=== PATIENT | male | born 1990 | race Caucasian/White ===

== ENCOUNTER 2018-10-24 23:06 | Outpatient (CLI) | payer OTHER | END 2018-10-24 23:07 | disposition critical access hospital (66) | LOC: EMS 23:06 | PROVIDERS: ATTEND Surgery | DX: R06.00 Dyspnea, unspecified (principal) | CPT/HCPCS: A0425; A0429 ==

== ENCOUNTER 2018-10-24 23:26 | Emergency (ER) | payer OTHER ==
[2018-10-25] MEDS ORDERED: CHERRY SYRUP 10 ML UDC PO ONE (00:09)
[2018-10-25] MEDS ORDERED: AMOX/CLAV 875 MG/125 MG TABLET PO STA (00:09)
[2018-10-25] MEDS ORDERED: DEXAMETHASONE 10 MG/ML VIAL PO STA (00:09)
[2018-10-25] MEDS ORDERED: IPRATROPIUM/ALBUTEROL 3 ML NEB INH STA (00:09)
--- NOTE | 2018-10-25 00:10 | ED Physician Documentation ---
PD HPI DYSPNEA - Stated complaint Stated Complaint: SOA - Chief complaint Chief Complaint: Resp - History obtained from History obtained from: Patient, Family - History of Present Illness Timing - onset: Yesterday Timing - onset during: Rest Timing - duration: Days (2) Timing - details: Gradual onset, Still present Inciting event(s): URI, Exposure (ie smoke) Improved by: O2, Inhaler/neb Worsened by: Exertion, Coughing Associated symptoms: Cough, Wheezing, Chest pain / discomfort Similar symptoms before: Has not had sx before Recently seen: Not recently seen - Additional information Additional information: 28-year-old male with no prior history of asthma has developed cough and congestion and yesterday he was cleaning his carpets in his home and following that he had some increasing shortness of breath. Today his shortness of breath worsened and he eventually called the ambulance was given a treatment in route with some improvement and presents to the emergency department now with some hypoxia and wheezing. Review of Systems Constitutional: denies: Fever Eyes: denies: Decreased vision Ears: denies: Ear pain Nose: reports: Rhinorrhea / runny nose, Congestion Throat: reports: Sore throat Cardiac: denies: Chest pain / pressure, Palpitations, Pedal edema, Calf pain Respiratory: reports: Dyspnea, Cough, Wheezing GI: denies: Abdominal Pain, Nausea, Vomiting : denies: Dysuria, Frequency PD PAST MEDICAL HISTORY - Past Medical History Past Medical History: No Cardiovascular: None Respiratory: None Neuro: None Endocrine/Autoimmune: None GI: None : None HEENT: None Psych: Depression, Anxiety Musculoskeletal: None Derm: None - Past Surgical History Past Surgical History: Yes Ortho: Other - Present Medications Home Medications: Ambulatory Orders Medication Instructions Recorded Confirmed Cetirizine [ZyrTEC] 10 mg PO DAILY 10/24/18 10/24/18 Fluticasone [Flonase] 2 sprays DAILY 10/24/18 10/24/18 Sertraline [Zoloft] 50 mg PO DAILY 10/24/18 10/24/18 Albuterol Sulf [Ventolin Hfa 1 - 2 puffs INH Q4HR PRN #1 inhaler 10/25/18 Inhaler] Amox/Clav 875/125 [Augmentin] 1 each PO Q12H #20 tablet 10/25/18 predniSONE [Deltasone] 10 mg PO ONCE #26 tablet 10/25/18 - Allergies Allergies/Adverse Reactions: Allergies Allergy/AdvReac Type Severity Reaction Status Date / Time iodine Allergy Itching Verified 10/24/18 23:35 shellfish derived Allergy Rash Verified 10/24/18 23:35 powdered gloves Allergy Hives Uncoded 10/24/18 23:35 - Social History Does the pt smoke?: No Smoking Status: Former smoker Does the pt drink ETOH?: No Does the pt have substance abuse?: No - Immunizations Immunizations are current?: Yes - POLST Patient has POLST: No PD ED PE NORMAL - Vitals Vital signs reviewed: Yes (hypertensive ) - General General: Alert and oriented X 3, Well developed/nourished, Other (tachypneic at rest with shallow breathing ) - HEENT HEENT: Atraumatic, PERRL, EOMI, Pharynx benign, Other (The left TM is inflamed in the attic and has disorted landmarks. The right is clear ) - Neck Neck: Supple, no meningeal sign, No bony TTP - Cardiac Cardiac: RRR, No murmur - Respiratory Respiratory: No respiratory distress, Other (diminished breath sounds bilat) - Abdomen Abdomen: Soft, Non tender - Back Back: No CVA TTP, No spinal TTP - Derm Derm: Normal color, Warm and dry, No rash - Extremities Extremities: No deformity, No tenderness to palpate, Normal ROM s pain, No neri ma, No calf tenderness / cord - Neuro Neuro: Alert and oriented X 3, extension edger 2-12 intact, No motor deficit, No sensory deficit, Normal speech Eye Opening: Spontaneous Motor: Obeys Commands Verbal: Oriented GCS Score: 15 - Psych Psych: Normal mood, Normal affect Results - Vitals Vitals: Vital Signs - 24 hr 10/24/18 10/25/18 10/25/18 23:29 00:22 01:13 Temperature 36.7 C Heart Rate 81 73 76 Respiratory 18 18 18 Rate Blood Pressure 135/83 H O2 Saturation 92 10/25/18 01:32 Temperature Heart Rate 94 Respiratory 18 Rate Blood Pressure 125/64 O2 Saturation 98 Oxygen O2 Source Room air - Rads (name of study) chest 2 view Radiology: Prelim report reviewed, EMP read indepedently, See rad report (Impression: Mild right suprahilar and left lung base opacity suspected because of, possibly pneumonia in the proper clinical setting.) PD MEDICAL DECISION MAKING - ED course Complexity details: reviewed old records, reviewed results, re-evaluated patient, considered differential, d/w patient, d/w family ED course: 28-year-old male with an acute reactive airway disease that appears to been set off by some carpet cleaning also has URI symptoms and on examination has otitis. He has some questionable infiltrate to his chest as well and here in the emergency department he is administered Augmentin as well as a DuoNeb treatment and dexamethasone. He has improvement in his breathing he is administered a second albuterol treatment and at the conclusion of treatment he is no longer hypoxic and is moving air fairly well. Departure - Departure Disposition: Home, Self Care Clinical Impression: Otitis media Qualifiers: Otitis media type: suppurative Chronicity: acute Laterality: left Recurrence: non-recurrent Spontaneous tympanic membrane rupture: without spontaneous rupture Qualified Code(s): H66.002 - Acute suppurative otitis media without spontaneous rupture of ear drum, left ear Reactive airway disease with acute exacerbation Qualifiers: Asthma severity: mild Asthma persistence: intermittent Qualified Code(s): J45.21 - Mild intermittent asthma with (acute) exacerbation Condition: Stable Instructions: ED Reactive Airway Disease, ED Bronchitis Asthmatic, ED Otitis Media Acute Adult Follow-Up: JOSE MARIA MARTIN MD [Primary Care Provider] - Prescriptions: Albuterol Sulf [Ventolin Hfa Inhaler] 1 - 2 puffs INH Q4HR PRN #1 inhaler PRN Reason: Shortness Of Air/Wheezing Amox/Clav 875/125 [Augmentin] 1 each PO Q12H #20 tablet predniSONE [Deltasone] 10 mg PO ONCE #26 tablet Discharge Date/Time: 10/25/18 01:50
[2018-10-25] MEDS ORDERED: ALBUTEROL NEB 2.5 MG/3 ML INH STA (00:50)
--- NOTE | 2018-10-25 01:03 | XRAY Report ---
Reason: cough soa Procedure Date: 10/25/2018 Accession Number: [id number] / [id number] Procedure: XR - Chest 2 View X-Ray CPT Code: 91667 FULL RESULT: EXAM: CHEST RADIOGRAPHY EXAM DATE: 10/25/2018 12:46 AM. CLINICAL HISTORY: Cough , short of breath. COMPARISON: None. TECHNIQUE: 2 views. FINDINGS: Lungs/Pleura: Minimal patchy right suprahilar opacity suspected. Mild lingular airspace opacity. No gross pneumothorax or effusion. Mediastinum: Heart and mediastinal contours are unremarkable. Other: None. IMPRESSION: Mild right suprahilar and left lung base opacity suspected, possibly pneumonia in the proper clinical setting. RADIA
[2018-10-25 01:33] VITALS: BP 125/64
== END 2018-10-25 01:50 | disposition home or self-care (01) ==
LOC: ED 23:26
DX: H66.002 Acute suppurative otitis media without spontaneous rupture of ear drum, left ear (principal); J45.21 Mild intermittent asthma with (acute) exacerbation; Z87.891 Personal history of nicotine dependence
CPT/HCPCS: 71046; 94640; 94664; 99283; A9270

== ENCOUNTER 2020-07-10 22:16 | Emergency (ER) | payer OTHER ==
--- NOTE | 2020-07-10 22:27 | ED Physician Documentation ---
PD HPI DYSPNEA - Stated complaint Stated Complaint: SOA - Chief complaint Chief Complaint: Resp - History obtained from History obtained from: Patient - History of Present Illness Timing - onset: Last night Timing - details: Gradual onset Pain level now: 2 Improved by: Rest Worsened by: Exertion Associated symptoms: Cough (nonproductive), Wheezing, Chest pain / discomfort (chest feels constricted/tight) Similar symptoms before: Other (similar symptoms 2 years ago, T+R from this ED, was thought to be releated to environmental (chemical) exposure.) Recently seen: Not recently seen - Additional information Additional information: c/o dyspnea, wheezing, chest and throat "itchy" sensation (per patient) since yesterday (last night). dyspnea has been steadily progressing. Took benadryl earlier today without improvement. He says he occasionally gets similar symptoms thought to be related to environmental allergies such as dust and dander, and he notes that his AC filter was just changed yesterday. He no longer has the MDI inhaler prescribed from last visit; he only very occasionally used it, and would have resolution with one use per episode. Review of Systems Constitutional: denies: Fever, Chills, Sweats Nose: denies: Rhinorrhea / runny nose, Congestion Throat: denies: Sore throat Cardiac: reports: Chest pain / pressure (tight/constricted, but not pain per se). denies: Palpitations Respiratory: reports: Dyspnea, Cough, Wheezing. denies: Hemoptysis Skin: denies: Rash PD PAST MEDICAL HISTORY - Past Medical History Cardiovascular: None Respiratory: None Neuro: None Endocrine/Autoimmune: None GI: None : None HEENT: None Psych: Depression, Anxiety Musculoskeletal: None Derm: None - Past Surgical History Past Surgical History: Yes Ortho: Other - Present Medications Home Medications: Ambulatory Orders Medication Instructions Recorded Confirmed Fluticasone [Flonase] 2 sprays DAILY 10/24/18 10/24/18 Sertraline [Zoloft] 50 mg PO DAILY 10/24/18 10/24/18 Albuterol Sulfate [Proair Hfa 1 - 2 puffs INH Q4H PRN #1 gm 07/10/20 Inhaler] predniSONE [Deltasone] 40 mg PO DAILY 4 Days #8 tablet 07/10/20 - Allergies Allergies/Adverse Reactions: Allergies Allergy/AdvReac Type Severity Reaction Status Date / Time iodine Allergy Edema Verified 07/10/20 22:24 shellfish derived Allergy Edema Verified 07/10/20 22:24 powdered gloves Allergy Hives Uncoded 10/24/18 23:35 - Social History Does the pt smoke?: No Smoking Status: Former smoker Does the pt drink ETOH?: No Does the pt have substance abuse?: No - Immunizations Immunizations are current?: Yes - POLST Patient has POLST: No PD ED PE NORMAL - Vitals Vital signs reviewed: Yes - General General: Alert and oriented X 3, No acute distress, Well developed/nourished - Cardiac Cardiac: RRR, No murmur - Respiratory Respiratory: No respiratory distress - Extremities Extremities: No edema PD ED PE EXPANDED - Respiratory Respiratory: Wheezing (bilateral, diffuse expiratory wheezing) Results - Vitals Vitals: Vital Signs - 24 hr 07/10/20 07/10/20 07/10/20 22:18 23:12 23:39 Temperature 36.3 C L Heart Rate 72 76 73 Respiratory 20 20 16 Rate Blood Pressure 149/95 H 137/68 H O2 Saturation 95 94 Oxygen O2 Source Room air - Rads (name of study) chest xray Radiology: Prelim report reviewed, See rad report PD MEDICAL DECISION MAKING - ED course Complexity details: reviewed old records, reviewed results, re-evaluated patient, considered differential, d/w patient ED course: significant improvement with duoneb. Also given PO benadryl and PO prednisone, but improvement occurred too soon to be attributed to the oral medications and thus were likely the desired effect of the duoneb. CXR performed because patient does not have asthma diagnosis and on previous [facility] ED visit CXR was s/o early pneumonia. Roxy's CXR does not demonstrate any abnormalities. Will d/c with rx for albuterol MDI and short course of prednisone Departure - Departure Disposition: 01 Home, Self Care Clinical Impression: Dyspnea Qualifiers: Dyspnea type: shortness of breath Qualified Code(s): R06.02 - Shortness of breath Condition: Good Instructions: ED Dyspnea Shortness of Breath Follow-Up: JOSE MARIA MARTIN MD [Primary Care Provider] - Prescriptions: predniSONE [Deltasone] 40 mg PO DAILY 4 Days #8 tablet Albuterol Sulfate [Proair Hfa Inhaler] 1 - 2 puffs INH Q4H PRN #1 gm PRN Reason: Shortness Of Air/Wheezing Discharge Date/Time: 07/10/20 23:39
[2020-07-10] MEDS ORDERED: ALBUTEROL 1 PUFF INH STA (22:46)
[2020-07-10] MEDS ORDERED: predniSONE 20 MG TABLET PO STA (22:47)
[2020-07-10] MEDS ORDERED: diphenhydrAMINE 25 MG CAPSULE PO STA (22:47)
[2020-07-10] MEDS ORDERED: IPRATROPIUM/ALBUTEROL 3 ML NEB INH STA (22:59)
[2020-07-10 23:39] VITALS: BP 137/68
--- NOTE | 2020-07-11 09:16 | XRAY Report ---
PROCEDURE: Chest 2 View X-Ray INDICATIONS: pain with sough, SOA TECHNIQUE: 2 view(s) of the chest. COMPARISON: Chest x-ray 10/25/2018 FINDINGS: Surgical changes and devices: None. Lungs and pleura: No pleural effusions or pneumothorax. Lungs are clear. Mediastinum: Mediastinal contours are normal. Heart size is normal. Bones and chest wall: No suspicious bony abnormalities. Soft tissues appear unremarkable. IMPRESSION: No acute pulmonary process. The above findings are concordant with preliminary report. Reviewed by: Luli Marks MD on 07/11/2020 9:15 AM [facility] Approved by: Luli Marks MD on 07/11/2020 9:15 AM [facility] Station ID: [id number]
== END 2020-07-10 23:39 | disposition home or self-care (01) ==
LOC: ED 22:16
DX: R06.02 Shortness of breath (principal); Z87.891 Personal history of nicotine dependence
CPT/HCPCS: 71046; 94640; 94664; 99283; A9270; J7512

== ENCOUNTER 2020-09-20 12:29 | Emergency (ER) | payer OTHER ==
[2020-09-20] MEDS ORDERED: diphenhydrAMINE INJ 50 MG/ML VIAL IVP STA (13:33)
[2020-09-20] MEDS ORDERED: SODIUM CHLORIDE 0.9% 1,000 ML IV STA (13:33)
[2020-09-20] MEDS ORDERED: PROCHLORPERAZINE 10 MG/2 ML VIAL IVP STA (13:33)
--- NOTE | 2020-09-20 13:34 | ED Physician Documentation ---
History of Present Illness - Stated complaint Stated Complaint: WEAKNESS/NAUSEA - Chief complaint Chief Complaint: General - Additonal information Additional information: 30-year-old male presents the emergency department for evaluation of headache nausea, feeling off balance and fuzzy. He reports that he woke up this morning and had a headache. He has felt lightheaded and dizzy since. He was standing at the sink doing dishes and nearly collapsed. He does not have a history of pre-existing headaches. There is a large scar on his forehead that is secondary to a wound sustained while in the [place] when he hit his head on an aircraft. There was no skull fracture associated with this large laceration. no light or noise sensitivity Patient reports that with the headache and nausea he began having dry heaves which worsened the headache. He however denies abdominal pain, diarrhea, fevers, neck pain dysuria urgency or frequency. Past medical history includes allergy induced asthma as well as some depression/anxiety. Meds: Advair, Zoloft Review of Systems Constitutional: denies: Fever, Chills Eyes: denies: Loss of vision, Decreased vision, Photophobia Ears: reports: Reviewed and negative Nose: reports: Reviewed and negative Throat: reports: Reviewed and negative Cardiac: denies: Chest pain / pressure, Palpitations Respiratory: denies: Dyspnea, Cough GI: reports: Nausea, Vomiting. denies: Abdominal Pain, Constipation, Diarrhea : denies: Dysuria, Frequency, Hesitancy Skin: denies: Rash, Lesions Musculoskeletal: denies: Neck pain, Back pain Neurologic: reports: Near syncope, Headache. denies: Generalized weakness, Focal weakness, Numbness, Difficulty speaking Psychiatric: reports: Reviewed and negative Endocrine: reports: Reviewed and negative PD PAST MEDICAL HISTORY - Past Medical History Cardiovascular: None Respiratory: None Neuro: None Endocrine/Autoimmune: None GI: None : None HEENT: None Psych: Depression, Anxiety Musculoskeletal: None Derm: None - Past Surgical History Past Surgical History: Yes Ortho: Other - Present Medications Home Medications: Ambulatory Orders Medication Instructions Recorded Confirmed Fluticasone [Flonase] 2 sprays DAILY 10/24/18 10/24/18 Sertraline [Zoloft] 50 mg PO DAILY 10/24/18 10/24/18 Albuterol Sulfate [Proair Hfa 1 - 2 puffs INH Q4H PRN #1 gm 07/10/20 Inhaler] predniSONE [Deltasone] 40 mg PO DAILY 4 Days #8 tablet 07/10/20 - Allergies Allergies/Adverse Reactions: Allergies Allergy/AdvReac Type Severity Reaction Status Date / Time iodine Allergy Edema Verified 07/10/20 22:24 shellfish derived Allergy Edema Verified 07/10/20 22:24 powdered gloves Allergy Hives Uncoded 10/24/18 23:35 - Social History Does the pt smoke?: No Smoking Status: Former smoker Does the pt drink ETOH?: No Does the pt have substance abuse?: No - Immunizations Immunizations are current?: Yes - POLST Patient has POLST: No PD ED PE EXPANDED - General General: Alert, No acute distress, Well developed/nourished - Cardiac Cardiac: Regular Rate, Radial strong equal, Pedal strong equal, Cap refill < 2 sec - Respiratory Respiratory: Clear to ausultation tammy. No: Distress, Labored - Abdomen Abdomen: Normal Bowel sounds. No: Tender to palpation - Derm Derm: Warm and dry. No: Petecchiae, Purpura - Extremities Extremities: Normal. No: Deformity, Tenderness - Neuro Neuro: Alert and Oriented X 3, CNII-XII intact, Normal gait, Normal finger nose, Normal speech - GCS Eye Opening: Spontaneous Motor: Obeys Commands Verbal: Oriented Total: 15 Results - Vitals Vitals: Vital Signs - 24 hr 09/20/20 09/20/20 12:38 14:16 Temperature 36.6 C Heart Rate 74 Heart Rate [ 67 Sitting] Heart Rate [ 73 Standing] Heart Rate [ 65 Supine] Respiratory 16 Rate Blood Pressure 135/83 H Blood Pressure 127/76 [Sitting] Blood Pressure 129/68 [Standing] Blood Pressure 121/61 [Supine] O2 Saturation 99 Oxygen O2 Source Room air - Labs Labs: Laboratory Tests 09/20/20 09/20/20 14:00 14:00 WBC 6.7 RBC 5.30 Hgb 16.7 Hct 46.9 MCV 88.5 MCH 31.5 H MCHC 35.6 RDW 11.9 L Plt Count 218 MPV 9.5 Neut # (Auto) 4.1 Lymph # (Auto) 1.8 [place] # (Auto) 0.5 Eos # (Auto) 0.1 Baso # (Auto) 0.0 Absolute Nucleated RBC 0.00 Nucleated RBC % 0.0 Sodium 138 Potassium 4.2 Chloride 102 Carbon Dioxide 28 Anion Gap 8.0 BUN 19 Creatinine 0.7 Estimated GFR (MDRD) 132 Glucose 102 H Calcium 9.3 Total Bilirubin 1.3 H AST 26 ALT 44 Alkaline Phosphatase 44 Total Protein 7.3 Albumin 4.8 Globulin 2.5 Albumin/Globulin Ratio 1.9 Lipase 20 L PD MEDICAL DECISION MAKING - ED course Complexity details: reviewed results, re-evaluated patient, d/w patient ED course: 30-year-old male presents emergency department for evaluation of headache that he noted upon waking this morning, feeling foggy lightheaded and near syncope. Headache was not sudden onset nor worst of life. No focal neurological or cerebellar deficits. Doubt SAH. This gentleman had not taken any medication at home for his headache. Screening labs here do not reveal any acute worrisome abnormalities. He was given Compazine and Benadryl as well as a liter of IV fluids. On reassessment he is free of headache. Advise close follow-up with his primary care provider. Emergent return precautions discussed worsening symptoms. Departure - Departure Disposition: Home, Self Care Clinical Impression: Headache Qualifiers: Headache type: unspecified Headache chronicity pattern: acute headache Intractability: not intractable Qualified Code(s): R51.9 - Headache, unspecified Condition: Stable Record reviewed to determine appropriate education?: Yes Instructions: ED Headache Migraine Comments: Paulo you were given medication today in the emergency department included Benadryl and Compazine for your headache. This typically does make you sleepy but reassuringly now you do no longer have a headache. Your vital signs were normal your neurological exam is normal your labs were all essentially unremarkable. Please drink lots of fluids when you get home. You may take occasional Tylenol or ibuprofen [id number] for headache. Return to the emergency department if you develop fevers, have suddenly severe or different headache uncontrolled vomiting or any fainting episodes.
[2020-09-20 14:05] LABS: BASOPHILS % (AUTO) 0.6 %; EOSINOPHILS # (AUTO) 0.1 10^3/uL (0.0-0.7); EOSINOPHILS % (AUTO) 2.1 %; HCT - HEMATOCRIT 46.9 % (42.0-52.0); HGB - HEMOGLOBIN 16.7 g/dL (14.0-18.0); LYMPHOCYTES # (AUTO) 1.8 10^3/uL (1.5-3.5); LYMPHOCYTES % (AUTO) 27.4 %; MEAN CORPUSCULAR HEMOGLOBIN 31.5 pg (27.0-31.0); MEAN CORPUSCULAR HGB CONC 35.6 g/dL (32.0-36.0); MEAN CORPUSCULAR VOLUME 88.5 fL (80.0-94.0); MEAN PLATELET VOLUME 9.5 fL (7.4-11.4); MONOCYTES # (AUTO) 0.5 10^3/uL (0.0-1.0); MONOCYTES % (AUTO) 7.5 %; NEUTROPHILS # (AUTO) 4.1 10^3/uL (1.5-6.6); NEUTROPHILS % (AUTO) 62.1 %; PLT - PLATELET COUNT 218 10^3/uL (130-450); RED CELL DISTRIBUTION WIDTH 11.9 % (12.0-15.0); WHITE BLOOD COUNT 6.7 x10^3/uL (4.8-10.8)
[2020-09-20 14:18] LABS: ALBUMIN 4.8 g/dL (3.2-5.5); ALBUMIN/GLOBULIN RATIO 1.9 (1.0-2.2); BILIRUBIN,TOTAL 1.3 mg/dL (0.2-1.0); CALCIUM 9.3 mg/dL (8.5-10.3); CREATININE 0.7 mg/dL (0.6-1.2); POTASSIUM 4.2 mmol/L (3.5-5.0); TOTAL PROTEIN 7.3 g/dL (6.7-8.2)
[2020-09-20 15:49] VITALS: BP 123/68
== END 2020-09-20 15:57 | disposition home or self-care (01) ==
LOC: ED 12:29
DX: R51.9 Headache, unspecified (principal); R55 Syncope and collapse; Z87.891 Personal history of nicotine dependence
CPT/HCPCS: 36415; 80053; 83690; 85025; 96374; 96375; 99283; 99284; J1200

== ENCOUNTER 2021-02-03 11:49 | Outpatient (CLI) | payer OTHER | END 2021-02-03 11:50 | disposition critical access hospital (66) | LOC: EMS 11:49 | DX: T43.212A Poisoning by selective serotonin and norepinephrine reuptake inhibitors, intentional self-harm, initial encounter (principal) | CPT/HCPCS: A0425; A0427 ==

== ENCOUNTER 2021-02-03 12:12 | Emergency (ER) | payer OTHER ==
[2021-02-03] MEDS ORDERED: SODIUM CHLORIDE 0.9% 1,000 ML IV STA (12:26)
[2021-02-03] MEDS ORDERED: CHARCOAL ACTIVATED 25 GM/120 ML BOTTLE PO STA (12:26)
[2021-02-03 12:44] LABS: BASOPHILS % (AUTO) 0.8 %; EOSINOPHILS # (AUTO) 0.1 10^3/uL (0.0-0.7); EOSINOPHILS % (AUTO) 1.7 %; HCT - HEMATOCRIT 45.2 % (42.0-52.0); HGB - HEMOGLOBIN 16.1 g/dL (14.0-18.0); LYMPHOCYTES # (AUTO) 1.1 10^3/uL (1.5-3.5); LYMPHOCYTES % (AUTO) 21.8 %; MEAN CORPUSCULAR HEMOGLOBIN 31.4 pg (27.0-31.0); MEAN CORPUSCULAR HGB CONC 35.6 g/dL (32.0-36.0); MEAN CORPUSCULAR VOLUME 88.3 fL (80.0-94.0); MEAN PLATELET VOLUME 9.8 fL (7.4-11.4); MONOCYTES # (AUTO) 0.4 10^3/uL (0.0-1.0); MONOCYTES % (AUTO) 7.8 %; NEUTROPHILS # (AUTO) 3.5 10^3/uL (1.5-6.6); NEUTROPHILS % (AUTO) 67.5 %; PLT - PLATELET COUNT 218 10^3/uL (130-450); RED BLOOD COUNT 5.12 10^6/uL (4.70-6.10); RED CELL DISTRIBUTION WIDTH 11.8 % (12.0-15.0); WHITE BLOOD COUNT 5.2 x10^3/uL (4.8-10.8)
--- NOTE | 2021-02-03 12:48 | ED Physician Documentation ---
History of Present Illness - Stated complaint Stated Complaint: OD/SI - Chief complaint Chief Complaint: MHE - History obtained from History obtained from: Patient, EMS - Additonal information Additional information: Patient is brought to the emergency department by EMS for chief complaint of venlafaxine overdose. The patient states he is struggled with depression for the last few years, but that it has been especially bad for the last couple of weeks. He states some domestic discord as part of the reason, stating that he "keeps hurting his 's feelings, but does not mean to". He also notes that his unexpectedly became but that they lost the baby a couple of weeks ago. Patient states that this morning, he and his had an argument and he just felt as though they would both be better off if he was no longer here. He states he first tried to hang himself by tying a rope around the front of his car laying down into it. However, without been able to breathe, he ari me panicked and took the new soft. He states he did not come against the rope forcefully. He does not have any difficulty breathing or throat pain at this time. Patient states that he then decided to take the rest of his Effexor Extended release 75 mg tabs. He is not really sure how many pills were in the bottle, though he guesses 30-40. Looking at the bottle, it appears the medication was filled on December 24, 2020 and the patient was given a total of 60 tablets. Patient states that he has taken the medication every day as prescribed and has not missed any doses that he remembers. He does note that he had just "a couple" doses left in his pill organizer when this bottle was filled. He denies being on any other medications and denies taking any other medications or substances along with the Effexor today. He states that he had the ingestion at roughly 1115 this morning and has not vomited since. He is mostly just feeling "heavy". No chest pain or palpitations. No shortness of breath. No nausea or diarrhea. He has tried to commit suicide one other time by jumping off a ship. He states that he is still feeling somewhat suicidal at this time, and just feels hopeless. He is currently seeing a therapist and just got established with a psychiatrist through the [facility] Though he has not had more than 1 visit with either 1. No other complaints at this time. Review of Systems Ten Systems: 10 systems reviewed and negative Constitutional: reports: Reviewed and negative Eyes: reports: Reviewed and negative Ears: reports: Reviewed and negative Nose: reports: Reviewed and negative Throat: reports: Reviewed and negative Cardiac: reports: Reviewed and negative Respiratory: reports: Reviewed and negative GI: reports: Reviewed and negative : reports: Reviewed and negative Skin: reports: Reviewed and negative Musculoskeletal: reports: Reviewed and negative Neurologic: reports: Reviewed and negative Psychiatric: reports: Depressed, Suicidal Endocrine: reports: Reviewed and negative Immunocompromised: reports: Reviewed and negative PD PAST MEDICAL HISTORY - Past Medical History Cardiovascular: None Respiratory: None Neuro: None Endocrine/Autoimmune: None GI: None : None HEENT: None Psych: Depression, Anxiety Musculoskeletal: None Derm: None - Past Surgical History Past Surgical History: Yes Ortho: Other - Present Medications Home Medications: Ambulatory Orders Medication Instructions Recorded Confirmed Fluticasone [Flonase] 2 sprays DAILY 10/24/18 10/24/18 Sertraline [Zoloft] 50 mg PO DAILY 10/24/18 10/24/18 Albuterol Sulfate [Proair Hfa 1 - 2 puffs INH Q4H PRN #1 gm 07/10/20 Inhaler] predniSONE [Deltasone] 40 mg PO DAILY 4 Days #8 tablet 07/10/20 - Allergies Allergies/Adverse Reactions: Allergies Allergy/AdvReac Type Severity Reaction Status Date / Time iodine Allergy Edema Verified 02/03/21 12:28 shellfish derived Allergy Edema Verified 02/03/21 12:28 powdered gloves Allergy Hives Uncoded 02/03/21 12:28 - Social History Does the pt smoke?: No Smoking Status: Never smoker Does the pt drink ETOH?: No Does the pt have substance abuse?: No - Immunizations Immunizations are current?: Yes - POLST Patient has POLST: No PD ED PE NORMAL - Vitals Vital signs reviewed: Yes - General General: Alert and oriented X 3, No acute distress, Well developed/nourished - HEENT HEENT: Atraumatic, PERRL, EOMI, Moist mucous membranes - Neck Neck: Supple, no meningeal sign, Other (Atraumatic; No stridor;No mass) - Cardiac Cardiac: RRR, No murmur, Strong equal pulses - Respiratory Respiratory: No respiratory distress, Clear bilaterally - Abdomen Abdomen: Soft, Non tender, Non distended - Derm Derm: Normal color, Warm and dry, No rash - Extremities Extremities: No deformity, No edema - Neuro Neuro: Alert and oriented X 3, outdoor emergency care technician 2-12 intact, No motor deficit, No sensory deficit, Normal speech - Psych Psych: Other (Patient is tearful, but otherwise appears reserved. Calm and cooperative.) Results - Vitals Vitals: Vital Signs - 24 hr 02/03/21 02/03/21 02/03/21 12:13 12:57 15:02 Temperature 37.1 C Heart Rate 92 100 78 Respiratory 16 16 16 Rate Blood Pressure 144/92 H 138/91 H O2 Saturation 96 96 96 02/03/21 02/03/21 02/03/21 16:25 17:10 18:36 Temperature Heart Rate 93 94 92 Respiratory 16 18 16 Rate Blood Pressure 142/94 H 142/94 H 145/85 H O2 Saturation 96 95 97 Oxygen O2 Source Room air - Labs Labs: Laboratory Tests 02/03/21 02/03/21 02/03/21 12:36 12:36 12:36 WBC 5.2 RBC 5.12 Hgb 16.1 Hct 45.2 MCV 88.3 MCH 31.4 H MCHC 35.6 RDW 11.8 L Plt Count 218 MPV 9.8 Neut # (Auto) 3.5 Lymph # (Auto) 1.1 L [place] # (Auto) 0.4 Eos # (Auto) 0.1 Baso # (Auto) 0.0 Absolute Nucleated RBC 0.00 Nucleated RBC % 0.0 Magnesium 1.9 TSH 1.49 Nasal Adenovirus (PCR) Nasal B. parapertussis DNA (PCR) Nasal Coronavir 229E PCR Nasal Coronavir HKU1 PCR Nasal Coronavir NL63 PCR Nasal Coronavir OC43 PCR Nasal Enterovir/Rhinovir PCR Nasal Influenza B PCR Nasal Influenza A PCR Nasal Parainfluen 1 PCR Nasal Parainfluen 2 PCR Nasal Parainfluen 3 PCR Nasal Parainfluen 4 PCR Nasal RSV (PCR) Nasal B.pertussis DNA PCR Nasal C.pneumoniae (PCR) Kwame Human Metapneumo PCR Nasal M.pneumoniae (PCR) Nasal SARS-CoV-2 (PCR) Salicylates < 6.0 Urine Opiates Screen Ur Oxycodone Screen Urine Methadone Screen Ur Propoxyphene Screen Acetaminophen < 10 L Ur Barbiturates Screen Ur Tricyclics Screen Ur Phencyclidine Scrn Ur Amphetamine Screen U Methamphetamines Scrn U Benzodiazepines Scrn Urine Cocaine Screen U Cannabinoids Screen Ethyl Alcohol < 5.0 02/03/21 02/03/21 13:18 15:16 WBC RBC Hgb Hct MCV MCH MCHC RDW Plt Count MPV Neut # (Auto) Lymph # (Auto) [place] # (Auto) Eos # (Auto) Baso # (Auto) Absolute Nucleated RBC Nucleated RBC % Magnesium TSH Nasal Adenovirus (PCR) NOT DETECTED Nasal B. parapertussis DNA (PCR) NOT DETECTED Nasal Coronavir 229E PCR NOT DETECTED Nasal Coronavir HKU1 PCR NOT DETECTED Nasal Coronavir NL63 PCR NOT DETECTED Nasal Coronavir OC43 PCR NOT DETECTED Nasal Enterovir/Rhinovir PCR NOT DETECTED Nasal Influenza B PCR NOT DETECTED Nasal Influenza A PCR NOT DETECTED Nasal Parainfluen 1 PCR NOT DETECTED Nasal Parainfluen 2 PCR NOT DETECTED Nasal Parainfluen 3 PCR NOT DETECTED Nasal Parainfluen 4 PCR NOT DETECTED Nasal RSV (PCR) NOT DETECTED Nasal B.pertussis DNA PCR NOT DETECTED Nasal C.pneumoniae (PCR) NOT DETECTED [place] Human Metapneumo PCR NOT DETECTED Nasal M.pneumoniae (PCR) NOT DETECTED Nasal SARS-CoV-2 (PCR) NOT DETECTED Salicylates Urine Opiates Screen NEGATIVE Ur Oxycodone Screen NEGATIVE Urine Methadone Screen NEGATIVE Ur Propoxyphene Screen NEGATIVE Acetaminophen Ur Barbiturates Screen NEGATIVE Ur Tricyclics Screen NEGATIVE Ur Phencyclidine Scrn NEGATIVE Ur Amphetamine Screen NEGATIVE U Methamphetamines Scrn NEGATIVE U Benzodiazepines Scrn NEGATIVE Urine Cocaine Screen NEGATIVE U Cannabinoids Screen NEGATIVE Ethyl Alcohol PD MEDICAL DECISION MAKING - ED course Complexity details: reviewed results, re-evaluated patient, considered differential, d/w patient ED course: Patient was evaluated immediately upon arrival in the emergency department by myself. He was placed on the monitoring and evaluation advisor which showed a normal sinus rhythm with narrow complex. I ordered activated charcoal for him and labs and EKG. He was also given IV fluid. I spoke with poison control pharmacist Amy, who recommended bicarbonate if the QRS was greater than 120 and an 8-hour observation period, secondary to the extended release nature of this medication. This was done and the patient remained stable throughout his entire stay in the emergency department. At the time of this dictation, it had been nearly 8 hours since the patient's ingestion with no change in his status. child welfare caseworker has already spoken with [facility] again, who has reserved a bed for the patient in their psychiatric unit. They will begin the process of official acceptance once the patient is officially medically clear. At this point in time, the patient will be signed out to Dr. Medley, pending acceptance at [facility] in transfer. Departure - Departure Disposition: [facility] Psych Hosp/Unit DC/Xfer Clinical Impression: Attempted suicide Depression Qualifiers: Depression Type: major depressive disorder Major depression recurrence: recurrent Active/Remission status: currently active Major depression episode severity: severe Psychotic features: without psychotic features Qualified Code(s): F33.2 - Major depressive disorder, recurrent severe without psychotic features Antidepressant overdose Qualifiers: Encounter type: initial encounter Injury intent: intentional self-harm Qualified Code(s): T43.202A - Poisoning by unspecified antidepressants, intentional self-harm, initial encounter Condition: Serious
[2021-02-03 13:04] LABS: ACETAMINOPHEN < 10 ug/mL (10-30); ETOH - ETHANOL < 5.0 mg/dL; MAGNESIUM 1.9 mg/dL (1.7-2.8); SALICYLATE < 6.0 mg/dL
[2021-02-03 13:24] LABS: MUDS CUTOFF CONCENTRATIONS CUTOFF CONC BELOW:
[2021-02-03 13:39] LABS: AMPHETAMINE SCREEN,URINE NEGATIVE (NEGATIVE); BARBITURATE SCREEN,UR NEGATIVE (NEGATIVE); BENZODIAZEPINES SCREEN, URINE NEGATIVE (NEGATIVE); COCAINE SCREEN URINE NEGATIVE (NEGATIVE); METHADONE SCREEN, URINE NEGATIVE (NEGATIVE); METHAMPHETAMINES SCREEN, URINE NEGATIVE (NEGATIVE); OPIATE SCREEN, URINE NEGATIVE (NEGATIVE); OXYCODONE SCREEN, URINE NEGATIVE (NEGATIVE); PROPOXYPHENE SCREEN, URINE NEGATIVE (NEGATIVE); THC CANNABINOID SCREEN, URINE NEGATIVE (NEGATIVE); TRICYCLIC ANTIDEPRESSANT,URINE NEGATIVE (NEGATIVE)
[2021-02-03 16:51] LABS: B. PARAPERTUSSIS- RESP PCR PAN NOT DETECTED; B. PERTUSSIS- RESP PCR PANEL NOT DETECTED; C. PNEUMONIAE- RESP PCR PANEL NOT DETECTED; CORONAVIRUS 229E-RESP PCR NOT DETECTED; CORONAVIRUS HKU1-RESP PCR NOT DETECTED; CORONAVIRUS NL63-RESP PCR NOT DETECTED; CORONAVIRUS OC43-RESP PCR NOT DETECTED; HUMAN METAPNEUMOVIRUS NOT DETECTED; INFLUENZA A- RESP PCR PANEL NOT DETECTED; INFLUENZA B - RESP PCR PANEL NOT DETECTED; M. PNEUMONIAE- RESP PCR PANEL NOT DETECTED; PARAINFLUENZA VIRUS 1 NOT DETECTED; PARAINFLUENZA VIRUS 2 NOT DETECTED; PARAINFLUENZA VIRUS 3 NOT DETECTED; PARAINFLUENZA VIRUS 4 NOT DETECTED; RHINOVIRUS/ENTEROVIRUS NOT DETECTED; RSV- RESP PCR PANEL NOT DETECTED; SARS-CoV-2 -RESP PCR PANEL NOT DETECTED
--- NOTE | 2021-02-03 21:11 | ED Physician Documentation ---
ED Addendum - Addendum Addendum: 02/03/21 21:10 30-year-old male prepared to go to [facility] for suicidal ideation and depression after an overdose of venlafaxine. He was initially to be observed for 8 hours. Poison control was contacted prior to the patient's departure and had misunderstood the venlafaxine as being immediate release and it was extended release. For this reason the patient will require a 24-hour observation for seizure and arrhythmia. He will need to be with us until tomorrow at noon. He has been accepted at [facility] pending medical clearance.
[2021-02-04 11:15] VITALS: BP 127/72
== END 2021-02-04 14:08 ==
LOC: EDUNIT# → ED 12:12
DX: T43.212A Poisoning by selective serotonin and norepinephrine reuptake inhibitors, intentional self-harm, initial encounter (principal); F33.2 Major depressive disorder, recurrent severe without psychotic features; Z20.822 Contact with and (suspected) exposure to COVID-19
CPT/HCPCS: 0202U; 36415; 80306; 80307; 80320; 80329; 83735; 84443; 85025; 93005; 96360; 99283; 99285; A9270

== ENCOUNTER 2022-01-17 19:44 | Outpatient (CLI) | payer OTHER | END 2022-01-17 19:45 | disposition home or self-care (01) | LOC: SC 19:44 | PROVIDERS: ATTEND Internal Medicine Pulmonary Disease | DX: G47.33 Obstructive sleep apnea (adult) (pediatric) (principal) | CPT/HCPCS: 95810 ==

== ENCOUNTER 2022-02-21 14:46 | Outpatient (CLI) | payer OTHER ==
[2022-02-21 15:11] VITALS: BP 118/62
--- NOTE | 2022-02-21 15:11 | SLEEP CARE CONSULTATION ---
Information from patient questionnaire entered by Denise Bassett. I have reviewed and concur with the information entered by Denise Bassett. This document represents the service I personally performed and the decisions made by , Shweta Alvarado ARNP. History of Present Illness Service Date and Time: 02/21/2022 1446 Initial [place] Sleepiness Scale score: 12 (12/16/2021) Current [place] Sleepiness Scale score: 12 (02/21/2022) Additional HPI information: ROMEL MONROY returns for follow up and results of the recently performed polysomnography. I explained the pathophysiology behind obstructive sleep apnea. We then spent quite a bit of time discussing different treatment options. For mild obstructive sleep apnea, surgery and oral appliance are alternatives to nasal CPAP therapy but in moderate or severe cases, nasal CPAP is the most effective and reliable treatment. Because apnea is primarily in supine position, then positional management therapy could be effective. Methods discussed such as positioning with pillows t o prevent supine sleep. I reviewed the impact of weight changes on sleep apnea and strongly recommended losing weight. Patient does not drink alcohol. Patient was cautioned about risks of drowsy driving until sleepiness symptoms resolve. Patient denies drowsy driving. Sleep Study - Results Type of Sleep Study: Polysomnography (COMPLETED 01/17/2022) Prior sleep studies: No Polysomnography/Home Sleep Study results: IMPRESSION: The quality of the study is good. The patient had normal sleep efficiency. Except for mild sleep fragmentation, the sleep architecture was normal as well. Respiratory monitoring showed mild obstructive sleep apnea-hypopnea (AHI = 5.9) associated with frequent arousals, oxyhemoglobin desaturation but no significant hypoxia (bret oxygen saturation of 90%). The respiratory events occurred only during supine sleep (supine AHI = 9.6; non-supine = 0.00). Snore was moderate in intensity. There was no significant periodic leg movement of sleep. Cardiac rhythm was normal sinus rhythm without significant arrhythmia. No abnormal behavior (parasomnia) observed during the night. Allergies and Home Medications Drug allergies reviewed: Yes (iodine) Home medication list reviewed: Yes (stopped Strattera) Review of Systems Review of systems same as previous: Yes (no changes) Physical Exam Vital signs obtained and entered by: DENISE Braden MA Blood Pressure: 118/62 (left arm) Cuff size: regular Heart Rate: 63 O2 Saturation: 96 Height: 5 ft 11 in Weight: 193 lb 6.4 oz Body Mass Index: 26.9 BMI Classification: Overweight Impression and Plan 1. Obstructive Sleep Apnea-Hypopnea Syndrome, mild, with lowest oxygen saturation of 90%. Obviously this is the cause of the patients symptoms of unrefreshed sleep, and excessive daytime sleepiness. Positive pressure therapy could benefit anxiety, depression and attention deficit. Since patients apnea is primarily in supine position, patient advised to try positional therapy and agreed with plan. He is also advised to lose weight as this will reduce snoring and apnea. An oral appliance can also be used for snoring but often is not covered by insurance. Follow up is scheduled for one month to check effectiveness. * Positional therapy. * Attempt to lose weight. * Avoid supine sleep. * Return in one month. I will assess response to therapy at that time. Counseling Topics: Weight loss health impact Visit Type: In Office Other Participants: Spouse/Significant Other Time Spent with Patient (minutes): 22 Provider Statement: I spent 100% of the Face to Face Visit with the patient with greater than 50% spent counseling the patient and coordination of care.
== END 2022-02-21 14:47 | disposition home or self-care (01) ==
LOC: SC 14:46
PROVIDERS: ATTEND Nurse Practitioner Family
DX: G47.33 Obstructive sleep apnea (adult) (pediatric) (principal)
CPT/HCPCS: 99212; 99213

== ENCOUNTER 2022-04-16 14:56 | Outpatient (CLI) | payer OTHER ==
[2022-04-16 15:18] VITALS: BP 108/70
--- NOTE | 2022-04-16 15:18 | SLEEP CARE CONSULTATION ---
Information from patient questionnaire entered by Kathy Bassett. I have reviewed and concur with the information entered by Kathy Bassett. This document represents the service I personally performed and the decisions made by me, Shweta Alvarado ARNP. History of Present Illness Service Date and Time: 04/16/2022 1456 Previous diagnosis: Mild, Obstructive Sleep Apnea-Hypopnea Syndrome AHI: 5.9 (in 2021) Reason for follow up: other (2 MONTH F/U POSITIONAL THERAPY ) Prior sleep studies: No Type of Sleep Study: Polysomnography (COMPLETED 01/17/2022) HPI additional information: ROMEL MONROY was diagnosed to have mild, AHI 5.9, obstructive sleep apnea-hypopnea syndrome and returned today for Positional therapy 2 month follow-up. Sleep Study - Results Type of Sleep Study: Polysomnography (COMPLETED 01/17/2022) Prior sleep studies: No CPAP Compliance Data Compliance data discussion: He states that he is not using any positional device but has found that when he rolls onto his back he will wake up. His will let him know if he rolls onto back and is supporting him in his positional therapy. Subjective On therapy, patient: reports: sleeping better, awakening more refreshed, being more awake and alert during the day, more rested overall, other (is having lots of stress in his life right now). denies: drowsiness while driving Initial [place] Sleepiness Scale score: 12 (12/16/2021) Current [place] Sleepiness Scale score: 8 (04/16/22) Allergies and Home Medications Drug allergies reviewed: Yes (iodine) Home medication list reviewed: Yes (no changes) Review of Systems Review of systems same as previous: Yes (no changes) Physical Exam Vital signs obtained and entered by: KATHY Braden MA Blood Pressure: 108/70 (LEFT ARM) Cuff size: regular Heart Rate: 78 O2 Saturation: 98 Height: 5 ft 11 in Weight: 197 lb (with clothes/shoes) Body Mass Index: 27.4 BMI Classification: Overweight Impression and Plan 1. Obstructive Sleep Apnea-Hypopnea Syndrome, mild. Using positional therapy, the patient has better sleep quality and is more rested overall. Patient states he is able to stay on his side even without positional devices. His is supporting him and just at night. He is also waking up when he turns onto his back and going back to his sides. He has noted a difference in his sleep and restfulness as noted. He would like to continue with positional therapy at this time. We will follow-up with him in a year or sooner if he has any concerns arise. Patient's apnea severity and rationale for treatment to reduce apnea, improve sleep quality and reduce cardiovascular and cerebrovascular events was reviewed. 2. Overweight, unspecified. Currently patients BMI is 27.9. Obesity increases the risk of apnea, CPAP pressure requirements and overall health risks especially cardiovascular and diabetes. Thus patient is advised to lose weight. -Continue positional therapy -Attempt to lose weight -Call this office if any problems -Return for follow up in 1 year, or sooner if concerns arise Counseling Topics: Sleeping position, Weight loss health impact Visit Type: In Office Time Spent with Patient (minutes): 11 Provider Statement: I spent 100% of the Face to Face Visit with the patient with greater than 50% spent counseling the patient and coordination of care.
== END 2022-04-16 14:57 | disposition home or self-care (01) ==
LOC: SC 14:56
PROVIDERS: ATTEND Nurse Practitioner Family
DX: G47.33 Obstructive sleep apnea (adult) (pediatric) (principal); E66.3 Overweight; Z68.27 Body mass index [BMI] 27.0-27.9, adult
CPT/HCPCS: 99212

== ENCOUNTER 2022-06-29 13:24 | Outpatient (CLI) | payer OTHER | END 2022-06-29 23:59 | disposition critical access hospital (66) | LOC: EMS 13:24 | DX: R07.9 Chest pain, unspecified (principal); R55 Syncope and collapse | CPT/HCPCS: A0425; A0429 ==

== ENCOUNTER 2022-06-29 13:47 | Emergency (ER) | payer OTHER ==
--- NOTE | 2022-06-29 14:15 | ED Physician Documentation ---
PD HPI CHEST PAIN - Stated complaint Stated Complaint: CP - Chief complaint Chief Complaint: Cardiac - History obtained from History obtained from: Patient - Additional information Additional information: Patient is a 32-year-old male with a history of sleep apnea presenting for evaluation of left-sided chest pain that started around 11:00. Patient had been cleaning around the house such as vacuuming. He denies doing any heavy work such as lifting or moving furniture. He started having midsternal chest burning and sharp discomfort that radiated to the left side of his chest and now feels more sore.He also felt weak and collapsed down to the ground but did not have a syncopal episode.His pain is improving. He denies fever, cough, difficulty breathing, abdominal pain, vomiting or diarrhea. He denies pain or swelling in his legs. He does not have a history of hypertension, diabetes, hyperlipidemia, early coronary artery disease in family. He does not smoke, Drink or use illicit substances. Review of Systems Constitutional: denies: Fever Cardiac: reports: Chest pain / pressure Respiratory: denies: Dyspnea GI: denies: Abdominal Pain, Vomiting Musculoskeletal: denies: Neck pain Neurologic: denies: Headache PD PAST MEDICAL HISTORY - Past Medical History Cardiovascular: None Respiratory: None Neuro: None Endocrine/Autoimmune: None GI: None : None HEENT: None Psych: Depression, Anxiety Musculoskeletal: None Derm: None - Past Surgical History Past Surgical History: Yes Ortho: Other - Present Medications Home Medications: Ambulatory Orders Medication Instructions Recorded Confirmed Fluticasone [Flonase] 2 sprays DAILY 10/24/18 06/29/22 Albuterol Sulfate [Proair Hfa 1 - 2 puffs INH Q4H PRN #1 gm 07/10/20 06/29/22 Inhaler] Fluticasone/Salmeterol [Advair 1 applic PO BID 07/27/21 06/29/22 250-50 Diskus] Venlafaxine [Effexor] 37.5 mg PO DAILY 07/27/21 06/29/22 - Allergies Allergies/Adverse Reactions: Allergies Allergy/AdvReac Type Severity Reaction Status Date / Time iodine Allergy Edema Verified 06/29/22 13:53 shellfish derived Allergy Edema Verified 06/29/22 13:53 powdered gloves Allergy Hives Uncoded 06/29/22 13:53 - Social History Does the pt smoke?: No Smoking Status: Never smoker Does the pt drink ETOH?: No Does the pt have substance abuse?: No - Immunizations Immunizations are current?: Yes - POLST Patient has POLST: No PD ED PE NORMAL - General General: Alert and oriented X 3, No acute distress, Well developed/nourished - HEENT HEENT: Atraumatic - Neck Neck: Supple, no meningeal sign - Cardiac Cardiac: RRR, No murmur - Respiratory Respiratory: No respiratory distress, Clear bilaterally - Abdomen Abdomen: Normal bowel sounds, Soft, Non tender, Non distended - Derm Derm: Warm and dry - Extremities Extremities: No edema, No calf tenderness / cord - Neuro Neuro: Alert and oriented X 3, oyster grader 2-12 intact, No motor deficit, No sensory deficit, Normal speech Results - Vitals Vitals: Vital Signs - 24 hr 06/29/22 06/29/22 06/29/22 13:49 14:04 14:33 Temperature 37.0 C Heart Rate 70 70 67 Respiratory 13 22 Rate Blood Pressure 114/78 124/85 H 115/79 O2 Saturation 99 96 96 06/29/22 06/29/22 06/29/22 15:00 15:30 16:00 Temperature 37.2 C Heart Rate 72 69 67 Respiratory 20 17 12 Rate Blood Pressure 134/89 H 130/88 H 128/86 H O2 Saturation 98 97 96 06/29/22 16:37 Temperature Heart Rate 64 Respiratory 96 H Rate Blood Pressure 122/68 O2 Saturation 21 L Oxygen O2 Source Room air - EKG (time done) 1420 Rate: Rate (enter#) (69) Rhythm: NSR Intervals: No: Prolonged QT Ischemia: No: ST elevation c/w ischemia Compare to prior EKG: Old EKG unavailable - Labs Labs: Laboratory Tests 06/29/22 06/29/22 06/29/22 14:25 14:25 14:25 WBC 6.4 RBC 5.26 Hgb 15.9 Hct 45.5 MCV 86.5 MCH 30.2 MCHC 34.9 RDW 11.7 L Plt Count 232 MPV 9.9 Neut # (Auto) 3.6 Lymph # (Auto) 2.0 [place] # (Auto) 0.5 Eos # (Auto) 0.2 Baso # (Auto) 0.1 Absolute Nucleated RBC 0.00 Nucleated RBC % 0.0 Sodium 139 Potassium 3.9 Chloride 103 Carbon Dioxide 29 Anion Gap 7.0 BUN 14 Creatinine 0.8 Estimated GFR (MDRD) 112 Glucose 98 Calcium 9.6 Total Bilirubin 1.3 H AST 16 ALT 32 Alkaline Phosphatase 36 L Troponin I High Sens < 2.3 L Total Protein 6.7 Albumin 4.2 Globulin 2.5 Albumin/Globulin Ratio 1.7 Lipase 25 06/29/22 15:54 WBC RBC Hgb Hct MCV MCH MCHC RDW Plt Count MPV Neut # (Auto) Lymph # (Auto) [place] # (Auto) Eos # (Auto) Baso # (Auto) Absolute Nucleated RBC Nucleated RBC % Sodium Potassium Chloride Carbon Dioxide Anion Gap BUN Creatinine Estimated GFR (MDRD) Glucose Calcium Total Bilirubin AST ALT Alkaline Phosphatase Troponin I High Sens 2.4 Total Protein Albumin Globulin Albumin/Globulin Ratio Lipase PD Medical Decision Making - ED course Complexity details: re-evaluated patient, d/w patient ED course: Pt with CP and episode of near syncope. EKG reviewed - NSR, no signs of acute ischemia. Normal neuro exam and no head injury or seizure activity to suggest need for CT head. Labs reviewed. Negative troponin x 2. Low risk for ACS based on heart score. Perc negative. Chest XR without acute findings. Symptoms have resolved here and he is able to ambulate without issue. DIscussed need for close follow up with PCP and concerning symptoms to return for. Departure - Departure Disposition: 01 Home, Self Care Clinical Impression: Chest pain, Near syncope Condition: Stable Instructions: ED Chest Pain Atypical Unkn Cause, ED Near Syncope Vasovagal Follow-Up: SAIRA Martins [Provider Group] Comments: You were evaluated after an episode of chest pain. Your labs are reassuring with no signs of a heart attack. Your chest x-ray is clear. I would recommend continuing to stay hydrated and have close follow-up with your PCP which you already have scheduled for tomorrow. In the meanwhile if you have any recurrence of your symptoms please consider reevaluation in the emergency department. Forms: Activity restrictions Discharge Date/Time: 06/29/22 16:58
[2022-06-29 14:29] LABS: BASOPHILS # (AUTO) 0.1 10^3/uL (0.0-0.1); BASOPHILS % (AUTO) 0.8 %; EOSINOPHILS # (AUTO) 0.2 10^3/uL (0.0-0.7); EOSINOPHILS % (AUTO) 2.7 %; HCT - HEMATOCRIT 45.5 % (42.0-52.0); HGB - HEMOGLOBIN 15.9 g/dL (14.0-18.0); LYMPHOCYTES % (AUTO) 32.1 %; MEAN CORPUSCULAR HEMOGLOBIN 30.2 pg (27.0-31.0); MEAN CORPUSCULAR HGB CONC 34.9 g/dL (32.0-36.0); MEAN CORPUSCULAR VOLUME 86.5 fL (80.0-94.0); MEAN PLATELET VOLUME 9.9 fL (7.4-11.4); MONOCYTES # (AUTO) 0.5 10^3/uL (0.0-1.0); NEUTROPHILS # (AUTO) 3.6 10^3/uL (1.5-6.6); NEUTROPHILS % (AUTO) 56.1 %; PLT - PLATELET COUNT 232 10^3/uL (130-450); RED BLOOD COUNT 5.26 10^6/uL (4.70-6.10); RED CELL DISTRIBUTION WIDTH 11.7 % (12.0-15.0); WHITE BLOOD COUNT 6.4 x10^3/uL (4.8-10.8)
[2022-06-29 14:46] LABS: ALBUMIN 4.2 g/dL (3.2-5.5); ALBUMIN/GLOBULIN RATIO 1.7 (1.0-2.2); BILIRUBIN,TOTAL 1.3 mg/dL (0.2-1.0); CALCIUM 9.6 mg/dL (8.5-10.3); CREATININE 0.8 mg/dL (0.6-1.2); POTASSIUM 3.9 mmol/L (3.5-5.0); TOTAL PROTEIN 6.7 g/dL (6.7-8.2)
--- NOTE | 2022-06-29 15:26 | XRAY Report ---
PROCEDURE: Chest 1 View X-Ray INDICATIONS: CP TECHNIQUE: One view of the chest was acquired. COMPARISON: None. FINDINGS: Surgical changes and devices: None. Lungs and pleura: No pleural effusions or pneumothorax. Lungs are clear. Mediastinum: Mediastinal contours appear normal. Heart size is normal. Bones and chest wall: No suspicious bony lesions. Overlying soft tissues appear unremarkable. IMPRESSION: No acute cardiopulmonary findings Reviewed by: John Novak MD on 06/29/2022 2:24 PM [place] Approved by: John Novak MD on 06/29/2022 2:24 PM [place] Station ID: [id number]
[2022-06-29 16:38] VITALS: BP 122/68
== END 2022-06-29 16:58 | disposition home or self-care (01) ==
LOC: EDUNIT# → ED 13:47
DX: R07.9 Chest pain, unspecified (principal); R55 Syncope and collapse
CPT/HCPCS: 36415; 80053; 83690; 84484; 85025; 93005; 99283; 99284

== ENCOUNTER 2022-08-01 17:16 | Outpatient (CLI) | payer OTHER ==
--- NOTE | 2022-08-01 19:02 | MRI Report ---
PROCEDURE: LUMBAR SPINE WO INDICATIONS: LOW ABCK PAIN TECHNIQUE: Noncontrast sagittal T1 spin echo and T2 fast echo, sagittal STIR, axial T1 and T2 fast spin echo thr ough the lumbar spine. In cases with scoliosis, additional coronal T2 fast spin echo may be performe d. COMPARISON: None. FINDINGS: Image quality: Diagnostic. Alignment and Curvature: There is normal bony alignment. Bone Marrow: Marrow is of normal overall signal. No acute vertebral body compression fractures. Spinal Cord: Conus medullaris terminates at the L1 level. Visualized cord demonstrates normal signa l and size. Paraspinous Soft Tissues: No paravertebral masses. T12-L1: Normal in appearance. L1-L2: Normal in appearance. L2-L3: Normal in appearance. L3-L4: No significant abnormality is seen. L4-L5: The disc height and disc signal are well preserved. Mild disc bulge is seen, with a slight c entral disc protrusion. Mild facet hypertrophy is seen. Moderate bilateral neural foraminal narrowi ng is seen. Minimal central canal narrowing is seen. L5-S1: Mild loss of disc height and disc signal are seen. Mild disc bulge is seen. A superimposed central disc protrusion is seen. Note is made of an annular fissure posteriorly. Mild facet hypertro phy is seen. Moderate bilateral neural foraminal narrowing is seen. Mild central canal narrowing is seen. IMPRESSION: Focal premature lower lumbar spine degenerative changes are seen, with moderate bilateral neuroforami nal narrowing at L4-L5 and L5-S1. Along the posterior aspect of the annulus fibrosis at L5-S1, there is an annular fissure seen. Reviewed by: Maldonado Pastrana MD on 08/01/2022 6:01 PM MIGUEL ANGEL Approved by: Maldonado Pastrana MD on 08/01/2022 6:01 PM MIGUEL ANGEL Station ID: [id number]
== END 2022-08-01 17:17 | disposition home or self-care (01) ==
LOC: DI 17:16
PROVIDERS: ATTEND Physician Assistant
DX: M47.816 Spondylosis without myelopathy or radiculopathy, lumbar region (principal); M48.061 Spinal stenosis, lumbar region without neurogenic claudication; M51.37 Other intervertebral disc degeneration, lumbosacral region

== ENCOUNTER 2022-08-14 10:51 | Emergency (ER) | payer OTHER ==
[2022-08-14 12:23] VITALS: BP 133/95
[2022-08-14] MEDS ORDERED: DEXAMETHASONE 10 MG/ML VIAL PO STA (12:25)
[2022-08-14] MEDS ORDERED: methocarbamoL 500 MG TABLET PO STA (12:25)
[2022-08-14] MEDS ORDERED: oxyCODONE 5 MG TABLET PO STA (12:25)
--- NOTE | 2022-08-14 12:33 | ED Physician Documentation ---
PD HPI BACK PAIN - Stated complaint Stated Complaint: BACK PX/ NUMBNESS IN BOTH LEGS,GROIN - Chief complaint Chief Complaint: Back Pain - History obtained from History obtained from: Patient, Family - History of Present Illness Timing - duration: Months Timing - details: Gradual onset Pain level max: 10 Pain level now: 10 Location: Lower, Right, Left Quality: Pain, Spasm, Similar to prior episodes Contributing factors: No: Trauma, Anticoagulated, Cancer, IVDA - Additional information Additional information: Patient is a 32-year-old male with a history of ongoing back pain for several months. He states he had an MRI about 2 weeks ago. This showed mild disc protrusions. He states he has had increasing pain recently. Was supposed to see his doctor today, but came here instead. He states he tried Motrin, Tylenol and Flexeril without relief. He states intermittent numbness to the bilateral lower extremities. No loss of bowel or bladder control. No trauma. No fevers. No chills. No IV drug use. He is able to walk without any assistive devices. Review of Systems Constitutional: denies: Fever, Chills Respiratory: denies: Cough GI: denies: Nausea, Vomiting, Diarrhea : denies: Unable to Void, Incontinent Skin: denies: Rash Musculoskeletal: denies: Neck pain, Extremity pain Neurologic: denies: Headache PD PAST MEDICAL HISTORY - Past Medical History Cardiovascular: None Respiratory: None Neuro: None Endocrine/Autoimmune: None GI: None : None HEENT: None Psych: Depression, Anxiety Musculoskeletal: Chronic back pain Derm: None - Past Surgical History Past Surgical History: Yes Ortho: Other - Present Medications Home Medications: Ambulatory Orders Medication Instructions Recorded Confirmed Fluticasone [Flonase] 2 sprays DAILY 10/24/18 06/29/22 Albuterol Sulfate [Proair Hfa 1 - 2 puffs INH Q4H PRN #1 gm 07/10/20 06/29/22 Inhaler] Fluticasone/Salmeterol [Advair 1 applic PO BID 07/27/21 06/29/22 250-50 Diskus] Venlafaxine [Effexor] 37.5 mg PO DAILY 07/27/21 06/29/22 HYDROcod/ACETAM 5/325 [[place] 5/325] 1 - 2 ea PO Q6H PRN #14 tablet 08/14/22 Meloxicam [Mobic] 7.5 mg PO BID PRN #20 tablet 08/14/22 methocarbamoL [Robaxin] 500 mg PO Q6H PRN #20 tablet 08/14/22 predniSONE [Deltasone] 10 mg PO [id number] #42 tab 08/14/22 - Allergies Allergies/Adverse Reactions: Allergies Allergy/AdvReac Type Severity Reaction Status Date / Time iodine Allergy Edema Verified 08/14/22 11:13 shellfish derived Allergy Edema Verified 08/14/22 11:13 powdered gloves Allergy Hives Uncoded 08/14/22 11:13 - Social History Does the pt smoke?: No Smoking Status: Never smoker Does the pt drink ETOH?: No Does the pt have substance abuse?: No - Immunizations Immunizations are current?: Yes - POLST Patient has POLST: No PD ED PE NORMAL - Vitals Vital signs reviewed: Yes - General General: Alert and oriented X 3, No acute distress, Well developed/nourished - HEENT HEENT: PERRL, Moist mucous membranes - Neck Neck: Supple, no meningeal sign - Cardiac Cardiac: RRR, Strong equal pulses - Respiratory Respiratory: No respiratory distress, Clear bilaterally - Abdomen Abdomen: Soft, Non tender, Non distended - Back Back: Other (No step-off or deformity. Paraspinal spasm bilateral lower lumbar. ) - Derm Derm: Warm and dry - Extremities Extremities: No edema, No calf tenderness / cord - Neuro Neuro: Alert and oriented X 3, No motor deficit, Other (Normal bilateral lower extremity patellar and ankle jerk reflexes. Normal great toe extension bilaterally. no saddle anesthesia. Mild decrease sensation on the lateral aspect of the left leg and lateral aspect of the right thigh.) - Psych Psych: Normal mood, Normal affect Results - Vitals Vitals: Vital Signs - 24 hr 08/14/22 08/14/22 11:09 12:20 Temperature 36.4 C L Heart Rate 84 80 Respiratory 20 18 Rate Blood Pressure 140/93 H 133/95 H O2 Saturation 98 99 Oxygen O2 Source Room air PD Medical Decision Making - ED course Complexity details: re-evaluated patient, considered differential (No cauda equina, no spinal epidural abscess, no fracture, no aortic dissection or evidence of aneursym rupture), d/w patient ED course: 32-year-old male presents to the emergency department with acute on chronic back pain. Symptoms resolved with oral oxycodone, oral Robaxin and oral dexamethasone. We will place him on pain medication, muscle relaxants and a steroid taper for home. He had an MRI less than 2 weeks ago. Does not have evidence of cauda equina today. After administration of medication here, the numbness in his legs has nearly resolved. He is ambulating without difficulty. No indication for further work-up at this time. Patient counseled regarding signs and symptoms for which I believe and urgent re-evaluation would be necessary. Patient with good understanding of and agreement to plan and is comfortable going home at this time This document was made in part using voice recognition software. While efforts are made to proofread this document, sound alike and grammatical errors may occur. Departure - Departure Disposition: Home, Self Care Clinical Impression: Sciatica Qualifiers: Laterality: bilateral Qualified Code(s): M54.31 - Sciatica, right side Condition: Good Instructions: ED Sciatica Follow-Up: CAROL ESPINO PA-C [Primary Care Provider] - Within 1 week Prescriptions: predniSONE [Deltasone] 10 mg PO [id number] #42 tab Meloxicam [Mobic] 7.5 mg PO BID PRN #20 tablet PRN Reason: Pain HYDROcod/ACETAM 5/325 [[place] 5/325] 1 - 2 ea PO Q6H PRN #14 tablet PRN Reason: Pain methocarbamoL [Robaxin] 500 mg PO Q6H PRN #20 tablet PRN Reason: muscle spasm Comments: Your prescriptions were sent to [facility] in [place]. Please follow-up with your doctor for further care. Please return if you worsen. I am prescribing a short course of narcotic pain medication for you. These are potentially dangerous and addictive medications that should be used carefully. These medications may constipate you. Take an seul-fco-jtihvel stool softener (docusate) twice daily with plenty of water while taking these medications. If you go 24 hours without a bowel movement, take wlyh-cjh-akpynel miralax, per package instructions. Do not drink or drive while taking these medications. If you received narcotic or sedating medications while in the emergency department, do not drive for 24 hours. Store this medication in a safe, secure place and out of reach of children. It is a violation of federal law to give or sell this medication to another person or to use in a manner other than prescribed. The ED will not refill narcotic prescriptions, including prescriptions lost or stolen. To dispose of unwanted medications: 1. [facility] at [address] in [place] has a medication drop box. They accept prescription medications (in pill form) Thursday through Thursday 9:00 a.m. to 5:00 p.m. 2. [facility] [employer] [facility] accepts prescription medications (in pill form only) for disposal year round. Call for more information. 3. Contact the [facility] for the next [facility] sponsored prescription drug collection event. , [phone], or [phone]; Discharge Date/Time: 08/14/22 13:55
== END 2022-08-14 13:55 | disposition home or self-care (01) ==
LOC: ED 10:51
DX: M54.31 Sciatica, right side (principal)
CPT/HCPCS: 36415; 99283; 99284; A9270

== ENCOUNTER 2022-12-11 11:39 | Emergency (ER) | payer OTHER ==
--- NOTE | 2022-12-11 11:59 | ED Physician Documentation ---
PD HPI BACK PAIN - Stated complaint Stated Complaint: LOWER BACK PX - Chief complaint Chief Complaint: Back Pain - History obtained from History obtained from: Patient - History of Present Illness Timing - onset: How many days ago (several dasy of increased pain over baseline, now up to 8/10 severity. No provoking factors per se. Seen by back specialist 2 1/2 weeks ago with injection L5/S1 area with anesthetic to see if helps pain, staging for nerve ablation procedure.) Timing - duration: Days Timing - details: Gradual onset, Still present Location: Lower, Left Quality: Pain, Tearing Associated symptoms: Numbness (down left foot/leg). No: Fever, Weakness, Incontinent of urine Worsened by: Movement Contributing factors: No: Trauma, Out of meds Similar symptoms before: Diagnosis (has nerve root impingement at L5/S1 level and is seeing back specialist.) Review of Systems Constitutional: denies: Fever, Chills Skin: denies: Rash, Lesions Neurologic: denies: Focal weakness PD PAST MEDICAL HISTORY - Past Medical History Cardiovascular: None Respiratory: None Neuro: None Endocrine/Autoimmune: None GI: None : None HEENT: None Psych: Depression, Anxiety Musculoskeletal: Chronic back pain Derm: None - Past Surgical History Past Surgical History: Yes Ortho: Other - Present Medications Home Medications: Ambulatory Orders Medication Instructions Recorded Confirmed Fluticasone [Flonase] 2 sprays DAILY 10/24/18 06/29/22 Albuterol Sulfate [Proair Hfa 1 - 2 puffs INH Q4H PRN #1 gm 07/10/20 06/29/22 Inhaler] Fluticasone/Salmeterol [Advair 1 applic PO BID 07/27/21 06/29/22 250-50 Diskus] Venlafaxine [Effexor] 37.5 mg PO DAILY 07/27/21 06/29/22 HYDROcod/ACETAM 5/325 [[place] 5/325] 1 - 2 ea PO Q6H PRN #14 tablet 08/14/22 Meloxicam [Mobic] 7.5 mg PO BID PRN #20 tablet 08/14/22 methocarbamoL [Robaxin] 500 mg PO Q6H PRN #20 tablet 08/14/22 predniSONE [Deltasone] 10 mg PO [id number] #42 tab 08/14/22 dexAMETHasone [Decadron] 4 mg PO DAILY #5 tablet 12/11/22 methocarbamoL [Robaxin] 500 mg PO Q6H PRN #20 tablet 12/11/22 oxyCODONE [Roxicodone] 5 mg PO Q6H PRN #25 tablet 12/11/22 - Allergies Allergies/Adverse Reactions: Allergies Allergy/AdvReac Type Severity Reaction Status Date / Time iodine Allergy Edema Verified 08/14/22 11:13 shellfish derived Allergy Edema Verified 08/14/22 11:13 powdered gloves Allergy Hives Uncoded 08/14/22 11:13 - Social History Does the pt smoke?: No Smoking Status: Never smoker Does the pt drink ETOH?: No Does the pt have substance abuse?: No - Immunizations Immunizations are current?: Yes - POLST Patient has POLST: No PD ED PE NORMAL - Vitals Vital signs reviewed: Yes - General General: Alert and oriented X 3, Well developed/nourished, Other (appears in pain. ) - Abdomen Abdomen: Soft, Non tender - Back Back: No CVA TTP, No spinal TTP (but has tenderness left SI area and lower lumbar/sacral area. No redness, warmth, lesions. ) - Derm Derm: Normal color, No rash - Neuro Neuro: Alert and oriented X 3, No motor deficit, No sensory deficit, Normal speech Results - Vitals Vitals: Vital Signs - 24 hr 12/11/22 11:52 Temperature 37.0 C Heart Rate 67 Respiratory 18 Rate Blood Pressure 128/63 O2 Saturation 98 Oxygen O2 Source Room air PD Medical Decision Making - ED course Complexity details: reviewed old records, considered differential (ongoing back pain with recent increased intensity without obvious new injury. Had had nerve root anesthetic injection 2 weeks ago to see if helps pain. It was improved and now worse. No fevers, redness, swelling to suggest infection from injection. ), d/w patient ED course: exac of chronic back pain. No red flags per se. Known radiation of pain down left leg. Departure - Departure Disposition: 01 Home, Self Care Clinical Impression: Acute exacerbation of chronic low back pain Condition: Stable Record reviewed to determine appropriate education?: Yes Instructions: ED Sciatica Follow-Up: CAROL ESPINO PA-C [Primary Care Provider] - Prescriptions: dexAMETHasone [Decadron] 4 mg PO DAILY #5 tablet methocarbamoL [Robaxin] 500 mg PO Q6H PRN #20 tablet PRN Reason: Spasms oxyCODONE [Roxicodone] 5 mg PO Q6H PRN #25 tablet PRN Reason: Pain Comments: Off work today and tomorrow. Gentle stretching and range of motion for your back. Heat for stiffness or spasms. Decadron steroid daily for 5 more days to help with potential inflammation. Robaxin muscle relaxant for stiffness or spasms. Add Tylenol 500 to 650 mg 4 times daily regularly for the next week. Add oxycodone every 4-6 hours if needed for worse pain. Follow-up with your back specialist and primary care if not improving readily enough over the next couple of days. I sent your prescriptions to your preferred pharmacy, [facility]. I am prescribing a short course of narcotic pain medication for you. These are potentially dangerous and addictive medications that should be used carefully. These medications may constipate you. Take an hoqe-qcb-bwxpvcv stool softener such as docusate twice daily with plenty of water while taking these medications. If you go 24 hours without a bowel movement, take pptb-zhf-vncyhii MiraLAX, per package instructions. Do not drink or drive while taking these medications. If you received narcotic or sedating medications while in the emergency department do not drive for 24 hours. Store this medication in a safe, secure place and out of reach of children. It is a violation of federal law to give or sell this medication to another person or to use in a manner other than prescribed. The ED will not refill narcotic prescriptions, including prescriptions lost or stolen. You can dispose of unwanted medications at the [facility]'s office or at several pharmacies such as [facility]. Forms: Activity restrictions Discharge Date/Time: 12/11/22 13:20
[2022-12-11 12:05] VITALS: BP 128/63; O2SAT 98
[2022-12-11] MEDS ORDERED: dexAMETHasone 4 MG TABLET PO STA (12:41)
[2022-12-11] MEDS ORDERED: oxyCODONE 5 MG TABLET PO STA (12:41)
== END 2022-12-11 13:20 | disposition home or self-care (01) ==
LOC: ED 11:39
DX: M54.50 Low back pain, unspecified (principal); G89.29 Other chronic pain
CPT/HCPCS: 99282; 99284; A9270; J8540

== ENCOUNTER 2023-01-14 07:01 | Emergency (ER) | payer OTHER ==
[2023-01-14 07:23] VITALS: BP 128/84; O2SAT 96
[2023-01-14 07:32] LABS: BASOPHILS % (AUTO) 0.7 %; EOSINOPHILS # (AUTO) 0.1 10^3/uL (0.0-0.7); EOSINOPHILS % (AUTO) 2.4 %; HCT - HEMATOCRIT 45.8 % (42.0-52.0); HGB - HEMOGLOBIN 16.1 g/dL (14.0-18.0); LYMPHOCYTES # (AUTO) 1.7 10^3/uL (1.5-3.5); LYMPHOCYTES % (AUTO) 31.4 %; MEAN CORPUSCULAR HEMOGLOBIN 30.4 pg (27.0-31.0); MEAN CORPUSCULAR HGB CONC 35.2 g/dL (32.0-36.0); MEAN CORPUSCULAR VOLUME 86.6 fL (80.0-94.0); MEAN PLATELET VOLUME 9.2 fL (7.4-11.4); MONOCYTES # (AUTO) 0.5 10^3/uL (0.0-1.0); MONOCYTES % (AUTO) 9.1 %; NEUTROPHILS % (AUTO) 56.2 %; PLT - PLATELET COUNT 221 10^3/uL (130-450); RED BLOOD COUNT 5.29 10^6/uL (4.70-6.10); RED CELL DISTRIBUTION WIDTH 11.7 % (12.0-15.0); WHITE BLOOD COUNT 5.4 x10^3/uL (4.8-10.8)
[2023-01-14 07:51] LABS: ALBUMIN 4.5 g/dL (3.2-5.5); ALBUMIN/GLOBULIN RATIO 2.4 (1.0-2.2); BILIRUBIN,TOTAL 0.7 mg/dL (0.2-1.0); CALCIUM 9.6 mg/dL (8.5-10.3); CREATININE 0.9 mg/dL (0.6-1.3); POTASSIUM 4.5 mmol/L (3.5-4.5); TOTAL PROTEIN 6.4 g/dL (6.4-8.9)
[2023-01-14 08:47] LABS: BILIRUBIN,URINE NEGATIVE (NEGATIVE); GLUCOSE, URINE (UA) NEGATIVE (NEGATIVE); KETONES,URINE (UA) NEGATIVE (NEGATIVE); LEUKOCYTE ESTERASE, URINE NEGATIVE (NEGATIVE); NITRITE,URINE NEGATIVE (NEGATIVE); OCCULT BLOOD,URINE NEGATIVE (NEGATIVE); PH,URINE 7.5 PH (5.0-7.5); PROTEIN,URINE NEGATIVE (NEGATIVE); UROBILINOGEN,URINE 0.2 (NORMAL) E.U./dL (NORMAL)
[2023-01-14] MEDS ORDERED: ONDANSETRON ODT 4 MG TABLET TL STA (08:49)
[2023-01-14 08:56] LABS: CLARITY,URINE CLEAR (CLEAR)
--- NOTE | 2023-01-14 09:27 | ED Physician Documentation ---
History of Present Illness - Stated complaint Stated Complaint: N/V,LIGHTHEADED - Chief complaint Chief Complaint: Abd Pain - History obtained from History obtained from: Patient - Additonal information Additional information: The patient comes to the emergency department chief complaint of nausea and vomiting for the last couple of days. He states that he also has had diarrhea on and off. He states he is just feeling miserable and does not feel like he can go to work. No sick contacts. No one else who ate the same food is him is sick. PD PAST MEDICAL HISTORY - Past Medical History Past Medical History: Yes Cardiovascular: None Respiratory: None Neuro: None Endocrine/Autoimmune: None GI: None : None HEENT: None Psych: Depression, Anxiety Musculoskeletal: Chronic back pain Derm: None - Past Surgical History Past Surgical History: Yes Ortho: Other - Present Medications Home Medications: Ambulatory Orders Medication Instructions Recorded Confirmed Fluticasone [Flonase] 2 sprays DAILY 10/24/18 06/29/22 Albuterol Sulfate [Proair Hfa 1 - 2 puffs INH Q4H PRN #1 gm 07/10/20 06/29/22 Inhaler] Fluticasone/Salmeterol [Advair 1 applic PO BID 07/27/21 06/29/22 250-50 Diskus] Venlafaxine [Effexor] 37.5 mg PO DAILY 07/27/21 06/29/22 HYDROcod/ACETAM 5/325 [[place] 5/325] 1 - 2 ea PO Q6H PRN #14 tablet 08/14/22 Meloxicam [Mobic] 7.5 mg PO BID PRN #20 tablet 08/14/22 methocarbamoL [Robaxin] 500 mg PO Q6H PRN #20 tablet 08/14/22 predniSONE [Deltasone] 10 mg PO [id number] #42 tab 08/14/22 dexAMETHasone [Decadron] 4 mg PO DAILY #5 tablet 12/11/22 methocarbamoL [Robaxin] 500 mg PO Q6H PRN #20 tablet 12/11/22 oxyCODONE [Roxicodone] 5 mg PO Q6H PRN #25 tablet 12/11/22 Ondansetron Odt [Zofran] 4 mg TL Q6H PRN #10 tablet 01/14/23 - Allergies Allergies/Adverse Reactions: Allergies Allergy/AdvReac Type Severity Reaction Status Date / Time iodine Allergy Edema Verified 01/14/23 07:21 shellfish derived Allergy Edema Verified 01/14/23 07:21 powdered gloves Allergy Hives Uncoded 01/14/23 07:21 - Social History Does the pt smoke?: No Smoking Status: Never smoker Does the pt drink ETOH?: No Does the pt have substance abuse?: No - Immunizations Immunizations are current?: Yes - POLST Patient has POLST: No PD ED PE NORMAL - Vitals Vital signs reviewed: Yes - General General: Alert and oriented X 3, No acute distress, Well developed/nourished - HEENT HEENT: Atraumatic, PERRL, EOMI, Moist mucous membranes - Neck Neck: Supple, no meningeal sign - Cardiac Cardiac: RRR, No murmur - Respiratory Respiratory: No respiratory distress, Clear bilaterally - Abdomen Abdomen: Soft, Non tender, Non distended - Derm Derm: Normal color, Warm and dry, No rash - Extremities Extremities: No deformity - Neuro Neuro: Alert and oriented X 3 - Psych Psych: Normal mood, Normal affect Results - Vitals Vitals: Oxygen O2 Source Room air - Labs Labs: Laboratory Tests 01/14/23 01/14/23 01/14/23 07:28 07:28 08:35 WBC 5.4 RBC 5.29 Hgb 16.1 Hct 45.8 MCV 86.6 MCH 30.4 MCHC 35.2 RDW 11.7 L Plt Count 221 MPV 9.2 Neut # (Auto) 3.0 Lymph # (Auto) 1.7 [place] # (Auto) 0.5 Eos # (Auto) 0.1 Baso # (Auto) 0.0 Absolute Nucleated RBC 0.00 Nucleated RBC % 0.0 Sodium 141 Potassium 4.5 Chloride 106 Carbon Dioxide 32 Anion Gap 3.0 L BUN 11 Creatinine 0.9 Estimated GFR (MDRD) 98 Glucose 115 H Calcium 9.6 Total Bilirubin 0.7 AST 16 ALT 28 Alkaline Phosphatase 42 Total Protein 6.4 Albumin 4.5 Globulin 1.9 L Albumin/Globulin Ratio 2.4 H Lipase 8 L Urine Color YELLOW Urine Clarity CLEAR Urine pH 7.5 Ur Specific [place] 1.015 Urine Protein NEGATIVE Urine Glucose (UA) NEGATIVE Urine Ketones NEGATIVE Urine Occult Blood NEGATIVE Urine Nitrite NEGATIVE Urine Bilirubin NEGATIVE Urine Urobilinogen 0.2 (NORMAL) Ur Leukocyte Esterase NEGATIVE Ur Microscopic Review NOT INDICATED Urine Culture Comments NOT INDICATED PD Medical Decision Making - ED course Complexity details: reviewed results, re-evaluated patient, considered differential, d/w patient ED course: The pt was worked up with labs and treated symptomatically. We have discussed clear liquid diet, symptomatic management at home, and the usual indications for return. Departure - Departure Disposition: 01 Home, Self Care Clinical Impression: Gastroenteritis Condition: Stable Instructions: ED Gastroenteritis Viral Prescriptions: Ondansetron Odt [Zofran] 4 mg TL Q6H PRN #10 tablet PRN Reason: Nausea / Vomiting Comments: Your symptoms are most likely caused by one of the many viruses that are going around right now and causing similar symptoms. 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 Try to drink clear liquids in very small amounts at a time, even using ice chips. Do not try to eat solid food until you have been without vomiting for at least 24 hours. Forms: Activity restrictions Discharge Date/Time: 01/14/23 09:40
== END 2023-01-14 09:40 | disposition home or self-care (01) ==
LOC: ED 07:01
DX: K52.9 Noninfective gastroenteritis and colitis, unspecified (principal)
CPT/HCPCS: 36415; 80053; 81003; 83690; 85025; 99283; Q0162; 81001; 87086

== ENCOUNTER 2023-03-05 10:03 | Emergency (ER) | payer OTHER ==
--- NOTE | 2023-03-05 10:24 | ED Physician Documentation ---
PD HPI HEAD INJURY - Stated complaint Stated Complaint: STAPLE REMOVAL - History obtained from History obtained from: Patient (32-year-old gentleman stood up into something a week ago and suffered a head injury and had 6 antione placed at [facility]. Denies headaches. Tetanus is up-to-date.) PD PAST MEDICAL HISTORY - Past Medical History Cardiovascular: None Respiratory: None Neuro: None Endocrine/Autoimmune: None GI: None : None HEENT: None Psych: Depression, Anxiety Musculoskeletal: Chronic back pain Derm: None - Past Surgical History Past Surgical History: Yes Ortho: Other - Present Medications Home Medications: Ambulatory Orders Medication Instructions Recorded Confirmed Fluticasone [Flonase] 2 sprays DAILY 10/24/18 06/29/22 Albuterol Sulfate [Proair Hfa 1 - 2 puffs INH Q4H PRN #1 gm 07/10/20 06/29/22 Inhaler] Fluticasone/Salmeterol [Advair 1 applic PO BID 07/27/21 06/29/22 250-50 Diskus] Venlafaxine [Effexor] 37.5 mg PO DAILY 07/27/21 06/29/22 HYDROcod/ACETAM 5/325 [[place] 5/325] 1 - 2 ea PO Q6H PRN #14 tablet 08/14/22 Meloxicam [Mobic] 7.5 mg PO BID PRN #20 tablet 08/14/22 methocarbamoL [Robaxin] 500 mg PO Q6H PRN #20 tablet 08/14/22 predniSONE [Deltasone] 10 mg PO [id number] #42 tab 08/14/22 dexAMETHasone [Decadron] 4 mg PO DAILY #5 tablet 12/11/22 methocarbamoL [Robaxin] 500 mg PO Q6H PRN #20 tablet 12/11/22 oxyCODONE [Roxicodone] 5 mg PO Q6H PRN #25 tablet 12/11/22 Ondansetron Odt [Zofran] 4 mg TL Q6H PRN #10 tablet 01/14/23 - Allergies Allergies/Adverse Reactions: Allergies Allergy/AdvReac Type Severity Reaction Status Date / Time iodine Allergy Edema Verified 01/14/23 07:21 shellfish derived Allergy Edema Verified 01/14/23 07:21 powdered gloves Allergy Hives Uncoded 01/14/23 07:21 - Social History Does the pt smoke?: No Smoking Status: Never smoker Does the pt drink ETOH?: No Does the pt have substance abuse?: No - Immunizations Immunizations are current?: Yes - POLST Patient has POLST: No PD ED PE NORMAL - Vitals Vital signs reviewed: Yes - General General: Alert and oriented X 3, No acute distress - HEENT HEENT: PERRL, EOMI, Other (Stapled laceration right parietal area with [address] and no signs of infection or complication. 6 antione removed during exam.) Results - Vitals Vitals: Oxygen O2 Source Room air Departure - Departure Disposition: 01 Home, Self Care Clinical Impression: Encounter for staple removal Condition: Good Record reviewed to determine appropriate education?: Yes Instructions: ED Stap Removal No Complication
[2023-03-05 10:32] VITALS: BP 136/81; O2SAT 100
== END 2023-03-05 10:27 | disposition home or self-care (01) ==
LOC: ED 10:03
DX: Z48.02 Encounter for removal of sutures (principal); S01.01XD Laceration without foreign body of scalp, subsequent encounter; X58.XXXD Exposure to other specified factors, subsequent encounter; Z79.899 Other long term (current) drug therapy
CPT/HCPCS: 99281; 99282

== ENCOUNTER 2023-06-23 12:02 | Emergency (ER) | payer OTHER ==
[2023-06-23 12:52] LABS: BILIRUBIN,URINE NEGATIVE (NEGATIVE); GLUCOSE, URINE (UA) NEGATIVE (NEGATIVE); KETONES,URINE (UA) 15 mg/dL (NEGATIVE); LEUKOCYTE ESTERASE, URINE NEGATIVE (NEGATIVE); NITRITE,URINE NEGATIVE (NEGATIVE); OCCULT BLOOD,URINE NEGATIVE (NEGATIVE); PH,URINE 6.5 PH (5.0-7.5); PROTEIN,URINE NEGATIVE (NEGATIVE); UROBILINOGEN,URINE 0.2 (NORMAL) E.U./dL (NORMAL)
[2023-06-23 13:00] LABS: CLARITY,URINE CLEAR (CLEAR)
[2023-06-23 13:08] LABS: BASOPHILS % (AUTO) 0.5 %; EOSINOPHILS # (AUTO) 0.1 10^3/uL (0.0-0.7); EOSINOPHILS % (AUTO) 1.2 %; HCT - HEMATOCRIT 43.2 % (42.0-52.0); HGB - HEMOGLOBIN 15.6 g/dL (14.0-18.0); LYMPHOCYTES % (AUTO) 24.1 %; MEAN CORPUSCULAR HEMOGLOBIN 31.7 pg (27.0-31.0); MEAN CORPUSCULAR HGB CONC 36.1 g/dL (32.0-36.0); MEAN CORPUSCULAR VOLUME 87.8 fL (80.0-94.0); MEAN PLATELET VOLUME 9.7 fL (7.4-11.4); MONOCYTES # (AUTO) 0.4 10^3/uL (0.0-1.0); NEUTROPHILS # (AUTO) 5.7 10^3/uL (1.5-6.6); PLT - PLATELET COUNT 254 10^3/uL (130-450); RED BLOOD COUNT 4.92 10^6/uL (4.70-6.10); RED CELL DISTRIBUTION WIDTH 11.2 % (12.0-15.0); WHITE BLOOD COUNT 8.3 x10^3/uL (4.8-10.8)
[2023-06-23 13:18] LABS: ALBUMIN 4.4 g/dL (3.2-5.5); ALKALINE PHOSPHATASE 40 IU/L (42-121); ALT ALANINE AMINOTRANSFERASE 38 IU/L (10-60); AST ASPARTATE AMINOTRANSFERASE 18 IU/L (10-42); BILIRUBIN,TOTAL 0.7 mg/dL (0.2-1.0); BUN - BLOOD UREA NITROGEN 13 mg/dL (6-20); CALCIUM 9.3 mg/dL (8.5-10.3); CARBON DIOXIDE - CO2 29 mmol/L (21-32); CHLORIDE 105 mmol/L (101-111); CREATININE 0.8 mg/dL (0.6-1.3); GFR - MDRD 111 (>89); GLUCOSE 102 mg/dL (74-104); LIPASE < 10 U/L (11-82); POTASSIUM 3.9 mmol/L (3.5-4.5); SODIUM 140 mmol/L (135-145); TOTAL PROTEIN 6.6 g/dL (6.4-8.9)
--- NOTE | 2023-06-23 14:34 | ED Physician Documentation ---
PD HPI ABD PAIN - Stated complaint Stated Complaint: GI BLOOD - Chief complaint Chief Complaint: Abd Pain - Additional information Additional information: 33-year-old male presents emergency department after having a bowel movement and noticing blood in the toilet. Patient said that he has never had this happen before no pertinent past medical history he said that he would the bathroom around 11 AM this morning had regular bowel movement nothing out of the norm there is no pain with this bowel movement to his rectum or his abdomen. He said that he turned on noted a lot of bright red blood in the toilet bowl he then called his to let her know what happened and she told him he needed to come to the emergency department. Since he has been to the emergency department he is starting to notice mild generalized abdominal pain the triage note says that he was having pain in his left lower quadrant but patient tells myself it feels, generalized lower abdominal pain and says that this is normal for him when he is starting to feel anxious and he is feeling quite nervous at this point in time. He has had no nausea vomiting no frequent alcohol use it has not happened again since then and no dizziness. PD PAST MEDICAL HISTORY - Past Medical History Past Medical History: Yes Cardiovascular: None Respiratory: None Neuro: None Endocrine/Autoimmune: None GI: None : None HEENT: None Psych: Depression, Anxiety Musculoskeletal: Chronic back pain Derm: None - Past Surgical History Past Surgical History: Yes Ortho: Other - Present Medications Home Medications: Ambulatory Orders Medication Instructions Recorded Confirmed Fluticasone/Salmeterol [Advair 1 applic PO BID 07/27/21 03/05/23 250-50 Diskus] - Allergies Allergies/Adverse Reactions: Allergies Allergy/AdvReac Type Severity Reaction Status Date / Time iodine Allergy Edema Verified 06/23/23 12:37 shellfish derived Allergy Edema Verified 06/23/23 12:37 powdered gloves Allergy Hives Uncoded 01/14/23 07:21 - Social History Does the pt smoke?: Yes Smoking Status: Current every day smoker Does the pt drink ETOH?: No Does the pt have substance abuse?: No - Immunizations Immunizations are current?: Yes - POLST Patient has POLST: No PD ED PE NORMAL - Vitals Vital signs reviewed: Yes - General General: Alert and oriented X 3, No acute distress, Well developed/nourished - HEENT HEENT: Atraumatic, PERRL - Neck Neck: Supple, no meningeal sign - Cardiac Cardiac: RRR, No murmur, No gallop, Strong equal pulses - Respiratory Respiratory: No respiratory distress, Clear bilaterally - Abdomen Abdomen: Normal bowel sounds, Soft, Non tender, Non distended - Rectal Rectal: Other (at top of rectum there appears to be a hemrrhoid that has ruptured with mild oozing bleeding. Leaf Sticker c t techalcides Alexander at bedside) Results - Vitals Vitals: Vital Signs - 24 hr 06/23/23 06/23/23 12:37 15:00 Temperature 36.5 C Heart Rate 79 68 Respiratory 16 20 Rate Blood Pressure 130/83 H O2 Saturation 98 100 Oxygen O2 Source Room air - Labs Labs: Laboratory Tests 06/23/23 06/23/23 06/23/23 12:48 12:50 12:50 WBC 8.3 RBC 4.92 Hgb 15.6 Hct 43.2 MCV 87.8 MCH 31.7 H MCHC 36.1 H RDW 11.2 L Plt Count 254 MPV 9.7 Neut # (Auto) 5.7 Lymph # (Auto) 2.0 Meigs # (Auto) 0.4 Eos # (Auto) 0.1 Baso # (Auto) 0.0 Absolute Nucleated RBC 0.00 Nucleated RBC % 0.0 Sodium 140 Potassium 3.9 Chloride 105 Carbon Dioxide 29 Anion Gap 6.0 BUN 13 Creatinine 0.8 Estimated GFR (MDRD) 111 Glucose 102 Calcium 9.3 Total Bilirubin 0.7 AST 18 ALT 38 Alkaline Phosphatase 40 L Total Protein 6.6 Albumin 4.4 Globulin 2.2 Albumin/Globulin Ratio 2.0 Lipase < 10 L Urine Color YELLOW Urine Clarity CLEAR Urine pH 6.5 Ur Specific Machias <=1.005 Urine Protein NEGATIVE Urine Glucose (UA) NEGATIVE Urine Ketones 15 H Urine Occult Blood NEGATIVE Urine Nitrite NEGATIVE Urine Bilirubin NEGATIVE Urine Urobilinogen 0.2 (NORMAL) Ur Leukocyte Esterase NEGATIVE Ur Microscopic Review NOT INDICATED Urine Culture Comments NOT INDICATED PD Medical Decision Making - ED course ED course: 33-year-old male presents emergency department for concerns of hematochezia. Hemoglobin 15.6 hematocrit 43.2. Patient has had no recurrent episodes of bleeding per rectum denies any dizziness. Normal CMP. Urine is also unremarkable. Rectal exam was complete with the c t tech Catherine at bedside patient does appear to have a ruptured hemorrhoid at the top of his rectum that still has some mild oozing and bleeding. I considered a diverticular bleed but given that it appears that the bleeding is coming from the old hemorrhoid I have low suspicion for this. Patient was told how to manage this at home he was given strict ER return precautions when to follow-up with primary care provider as needed. Departure - Departure Disposition: 01 Home, Self Care Clinical Impression: Bleeding hemorrhoid Condition: Good Instructions: Hydrocortisone suppositories Comments: Thank you for trusting us with your care. We did a rectal exam and I do believe that you are experiencing bleeding from an external hemorrhoid that has ruptured. There is no interventions for this you can apply steroid cream to your rectum for future hemorrhoid issues and apply an ointment called A&E or Vaseline to your rectum while this ruptured hemorrhoid heals. Please come back to the emergency department if your abdominal pain gets any worse we did offer to do an abdominal CT scan but you believe that you are safe for discharge at this time given the physical findings that we have found. Do not hesitate to c ome back to the emergency department for further evaluation and workup if needed. Forms: PCP List Discharge Date/Time: 06/23/23 15:04
[2023-06-23 15:05] VITALS: BP 130/83; O2SAT 100
== END 2023-06-23 15:04 | disposition home or self-care (01) ==
LOC: ED 12:02
DX: K64.4 Residual hemorrhoidal skin tags (principal); F17.200 Nicotine dependence, unspecified, uncomplicated; Z79.51 Long term (current) use of inhaled steroids
CPT/HCPCS: 36415; 80053; 81001; 81003; 83690; 85025; 87086; 99283